=== PATIENT | male | born 1950 | race Hispanic/Latino ===

== ENCOUNTER → 2017-08-25 | Outpatient (CLI) | payer MEDICARE | LOC: RAH 07:18 | PROVIDERS: ATTEND Internal Medicine Gastroenterology | DX: K74.3 Primary biliary cirrhosis (principal); R74.8 Abnormal levels of other serum enzymes; R16.0 Hepatomegaly, not elsewhere classified | CPT/HCPCS: 76700 ==

== ENCOUNTER → 2019-01-25 | Outpatient (CLI) | payer OTHER, MEDICARE | END | disposition home or self-care (01) | LOC: RAH 10:01 | PROVIDERS: ATTEND Internal Medicine Gastroenterology | DX: D73.2 Chronic congestive splenomegaly (principal); K86.2 Cyst of pancreas | CPT/HCPCS: 76700; 93975 ==

== ENCOUNTER 2019-03-04 06:03 | Day surgery (SDC) | payer OTHER, MEDICARE ==
[~2019-03-04] VITALS: Ht 162.6 cm; Wt 69.9 kg
[~2019-03-04 06:03] MED LIST: SODIUM CHLORIDE 0.9% 1000ML 1,000 ML IV ONE
[2019-03-04 06:51] LABS: BASOPHILS % (AUTO) 0.9 % (0.0-5.0); HEMATOCRIT 30.8 % (42-54); LYMPHOCYTES % (AUTO) 33.9 % (21.0-51.0); MEAN CORPUSCULAR HEMOGLOBIN 35.2 pg (27.0-33.0); MEAN CORPUSCULAR HGB CONC 34.4 g/dL (32.0-36.0); MEAN CORPUSCULAR VOLUME 102.2 fL (79-99); MONOCYTES % (AUTO) 8.9 % (3.0-13.0); NEUTROPHILS % (AUTO) 54.3 % (40.0-77.0); NUCLEATED RED BLOOD CELLS 0.1 % (0.0-0.19); PLATELET COUNT (AUTO) 231 K/uL (130-400); RED BLOOD CELL COUNT(AUTO) 3.01 MIL/uL (4.50-6.20); RED CELL DISTRIBUTION WIDTH 16.7 % (11.0-15.5)
[2019-03-04 07:00] LABS: INR 1.16 (0.85-1.15); PROTHROMBIN TIME 12.1 SEC (9.6-11.6)
[2019-03-04 07:11] VITALS: BP 103/57
[2019-03-04] MEDS ORDERED: URSO500T10 PO (07:27)
[2019-03-04] MEDS ORDERED: TAMS-1 PO (07:27)
[2019-03-04] MEDS ORDERED: FINA5TAB41 PO (07:27)
[2019-03-04] MEDS ORDERED: PROPOFOL 10 MG/ML 20ML VIAL IV ONE (09:42)
[2019-03-04 10:00] VITALS: BP 124/85
[2019-03-04 10:05] VITALS: BP 127/85
[2019-03-04 10:09] VITALS: BP 128/82
[2019-03-04 10:14] VITALS: BP 128/79
[2019-03-04 10:20] VITALS: BP 121/77
== END 2019-03-04 10:37 | disposition home or self-care (01) ==
LOC: DAH 06:03 → ENDO 06:03
PROVIDERS: ATTEND Internal Medicine
DX: I85.00 Esophageal varices without bleeding (principal); E03.9 Hypothyroidism, unspecified; K31.89 Other diseases of stomach and duodenum; E78.5 Hyperlipidemia, unspecified; K86.2 Cyst of pancreas; I73.9 Peripheral vascular disease, unspecified; Z79.899 Other long term (current) drug therapy; Z98.890 Other specified postprocedural states; Z82.3 Family history of stroke
CPT/HCPCS: 36415; 43237; 43244; 85025; 85610; J2704; J7030

== ENCOUNTER 2019-04-12 07:59 | Day surgery (SDC) | payer OTHER, MEDICARE ==
[~2019-04-12] VITALS: Ht 177.8 cm; Wt 68.0 kg
[~2019-04-12 07:59] MED LIST changes: +FINA5TAB41 PO; +LACT10SO62 PO; +TAMS-1 PO; +URSO500T10 PO
[2019-04-12 09:51] VITALS: BP 108/60
[2019-04-12] MEDS ORDERED: PANT40TA25 PO (10:00)
[2019-04-12] MEDS ORDERED: SPIR25TA6 PO (10:00)
[2019-04-12] MEDS ORDERED: PROPOFOL 10 MG/ML 20ML VIAL IV ONE ×2 (10:36)
[2019-04-12 10:48] VITALS: BP 121/75
[2019-04-12 10:53] VITALS: BP 126/73
[2019-04-12 10:58] VITALS: BP 130/75
[2019-04-12 11:03] VITALS: BP 123/76
== END 2019-04-12 11:16 | disposition home or self-care (01) ==
LOC: ENDO 07:59 → DAH 07:59 → ENDO 11:16
PROVIDERS: ATTEND Internal Medicine
DX: I85.10 Secondary esophageal varices without bleeding (principal); K74.3 Primary biliary cirrhosis; K74.60 Unspecified cirrhosis of liver; E03.9 Hypothyroidism, unspecified; E78.5 Hyperlipidemia, unspecified; I73.9 Peripheral vascular disease, unspecified; Z98.890 Other specified postprocedural states; Z79.899 Other long term (current) drug therapy; Z83.3 Family history of diabetes mellitus
CPT/HCPCS: 43244; A4215; A4221; A4222; A4223; A4606; A4615; A4663; J2704; J7030

== ENCOUNTER → 2019-05-31 | Outpatient (CLI) | payer OTHER, MEDICARE ==
[~2019-05-31] MED LIST changes: +ALBUMIN (HUMAN) 25% 200 ML IV SCH; +PANT40TA25 PO; -SODIUM CHLORIDE 0.9% 1000ML 1,000 ML IV ONE; +SPIR25TA6 PO
[2019-05-31 09:15] LABS: BASOPHILS % (AUTO) 0.8 % (0.0-5.0); EOSINOPHILS % (AUTO) 1.7 % (0.0-8.0); LYMPHOCYTES % (AUTO) 26.7 % (21.0-51.0); MEAN CORPUSCULAR HEMOGLOBIN 34.6 pg (27.0-33.0); MEAN CORPUSCULAR HGB CONC 34.2 g/dL (32.0-36.0); MONOCYTES % (AUTO) 8.2 % (3.0-13.0); NEUTROPHILS % (AUTO) 62.6 % (40.0-77.0); NUCLEATED RED BLOOD CELLS 0.2 % (0.0-0.19); PLATELET COUNT (AUTO) 185 K/uL (130-400); RED BLOOD CELL COUNT(AUTO) 3.16 MIL/uL (4.50-6.20); RED CELL DISTRIBUTION WIDTH 15.7 % (11.0-15.5); WHITE BLOOD COUNT (AUTO) 4.6 K/uL (4.8-10.8)
[2019-05-31 09:18] LABS: CREATININE 1.1 mg/dL (0.5-1.5)
[2019-05-31 09:23] LABS: ALBUMIN 1.3 g/dL (3.5-5.0); BILIRUBIN,TOTAL 8.3 mg/dL (0.2-1.0); TOTAL PROTEIN, SERUM 7.2 g/dL (6.0-8.3)
[2019-05-31 09:26] LABS: INR 1.26 (0.85-1.15); PROTHROMBIN TIME 13.1 SEC (9.6-11.6)
--- NOTE | 2019-05-31 12:10 | NUR ---
U/S GD PARACENTESIS PROCEDURE PERFORMED BY DR ROMERO. PUNCTURE SITE RIGHT LOWER QUADRANT OF ABDOMEN AND PATIENT TOLERATED PROCEDURE WELL. TOTAL REMOVED 5.5 LITERS OF CLOUDY YELLOW ASCITES FLUID. END OF PROCEDURE AT 1230. CATHETER REMOVED AND DRESSING APPLIED. NO BLEEDING NOTED. ALBUMIN 25% 50 GRAMS GIVEN DURING PROCEDURE PER [facility] ALBUMIN PROTOCOL. DISCHARGE INSTRUCTIONS GIVEN TO PATIENT. PATIENT VERBALIZED UNDERSTANDING. PT DISCHARGED AMBULATORY, STABLE, AAO X3 WITH NO C/O PAIN. SPECIMEN SENT TO LAB.
[2019-05-31 13:45] LABS: ALBUMIN,BODY FLUID < 0.6 g/dL
[2019-05-31 14:04] LABS: APPEARANCE BODY FLUID CLEAR (CLEAR); BODY FLUID RBC 74 /cu. mm.; BODY FLUID WBC 225 /cu. mm.; COLOR,BODY FLUID YELLOW (LT YELLOW); SPECIMENTYPE,BODY FLUID ASCITES; TOTAL VOLUME,BODY FLUID 5500 mL
[2019-05-31 14:17] LABS: BF LYMPHOCYTE 50 %; BF MESOTHELIAL 43 %; BF MONOCYTE 6 %
== END ==
LOC: RAH 08:43
PROVIDERS: ATTEND Internal Medicine Gastroenterology
DX: R18.8 Other ascites (principal); K74.60 Unspecified cirrhosis of liver; E03.9 Hypothyroidism, unspecified; I73.9 Peripheral vascular disease, unspecified; Z79.899 Other long term (current) drug therapy; Z98.890 Other specified postprocedural states; Z83.3 Family history of diabetes mellitus
CPT/HCPCS: 36415; 49083; 80053; 82042; 84157; 85025; 85610; 87071; 87205; 88108; 89051; 96365; A4215; P9046

== ENCOUNTER → 2019-06-22 | Outpatient (CLI) | payer OTHER, MEDICARE ==
[~2019-06-22] MED LIST changes: +ALBUMIN (HUMAN) 25% 200 ML IV ONE; -ALBUMIN (HUMAN) 25% 200 ML IV SCH
[2019-06-22 09:22] LABS: BASOPHILS % (AUTO) 0.7 % (0.0-5.0); EOSINOPHILS % (AUTO) 1.9 % (0.0-8.0); HEMATOCRIT 32.4 % (42-54); LYMPHOCYTES % (AUTO) 22.6 % (21.0-51.0); MEAN CORPUSCULAR HEMOGLOBIN 32.9 pg (27.0-33.0); MONOCYTES % (AUTO) 7.1 % (3.0-13.0); PLATELET COUNT (AUTO) 163 K/uL (130-400); RED BLOOD CELL COUNT(AUTO) 3.34 MIL/uL (4.50-6.20); RED CELL DISTRIBUTION WIDTH 19.4 % (11.0-15.5); WHITE BLOOD COUNT (AUTO) 4.3 K/uL (4.8-10.8)
[2019-06-22 09:34] LABS: INR 1.19 (0.85-1.15); PROTHROMBIN TIME 12.4 SEC (9.6-11.6)
[2019-06-22 09:36] LABS: CREATININE 1.1 mg/dL (0.5-1.5); POTASSIUM 3.6 mmol/L (3.5-5.1)
[2019-06-22 09:41] LABS: ALBUMIN 1.6 g/dL (3.5-5.0); BILIRUBIN,TOTAL 10.5 mg/dL (0.2-1.0); TOTAL PROTEIN, SERUM 7.6 g/dL (6.0-8.3)
--- NOTE | 2019-06-22 10:00 | NUR ---
U/S GD PARACENTESIS PROCEDURE PERFORMED BY DR. ROMERO. PUNCTURE SITE RIGHT LOWER QUADRANT OF ABDOMEN AND PATIENT TOLERATED PROCEDURE WELL. TOTAL REMOVED 9.0 LITERS OF CLOUDY YELLOW FLUID. END OF PROCEDURE AT 1040. CATHETER REMOVED AND DRESSING APPLIED. NO BLEEDING NOTED. ALBUMIN 25% 50 GRAMS GIVEN DURING PROCEDURE [place] [facility] [place]. DISCHARGE INSTRUCTIONS GIVEN TO PATIENT. PATIENT VERBALIZED UNDERSTANDING. PT DISCHARGED VIA W/C, STABLE, AAO X3 WITH NO C/O PAIN. SPECIMEN SENT TO LAB.
[2019-06-22 16:49] LABS: SPECIMENTYPE,BODY FLUID ASCITES
[2019-06-22 16:50] LABS: APPEARANCE BODY FLUID SLIGHTLY CLOUDY (CLEAR); COLOR,BODY FLUID YELLOW (LT YELLOW)
[2019-06-22 16:51] LABS: BODY FLUID RBC 81 /cu. mm.; BODY FLUID WBC 199 /cu. mm.
[2019-06-22 16:54] LABS: BF LYMPHOCYTE 75 %; BF MESOTHELIAL 6 %; BF MONOCYTE 12 %
[2019-06-22 16:56] LABS: TOTAL VOLUME,BODY FLUID 9000 mL
== END ==
LOC: RAH 08:16
PROVIDERS: ATTEND Internal Medicine Gastroenterology
DX: R18.8 Other ascites (principal)
CPT/HCPCS: 36415; 49083; 80053; 85025; 85610; 87071; 87205; 88108; 88305; 89051; 96365; A4215; P9046

== ENCOUNTER 2019-06-28 17:45 | Emergency (ER) | payer OTHER, MEDICARE ==
[~2019-06-28 17:45] MED LIST changes: -ALBUMIN (HUMAN) 25% 200 ML IV ONE
[2019-06-28 18:12] LABS: BASOPHILS % (AUTO) 0.2 % (0.0-5.0); EOSINOPHILS % (AUTO) 0.7 % (0.0-8.0); HEMATOCRIT 33.5 % (42-54); LYMPHOCYTES % (AUTO) 24.3 % (21.0-51.0); MEAN CORPUSCULAR HEMOGLOBIN 33.4 pg (27.0-33.0); MEAN CORPUSCULAR HGB CONC 34.9 g/dL (32.0-36.0); MEAN CORPUSCULAR VOLUME 95.7 fL (79-99); MONOCYTES % (AUTO) 5.7 % (3.0-13.0); NEUTROPHILS % (AUTO) 68.4 % (40.0-77.0); PLATELET COUNT (AUTO) 203 K/uL (130-400); RED CELL DISTRIBUTION WIDTH 19.8 % (11.0-15.5); WHITE BLOOD COUNT (AUTO) 4.5 K/uL (4.8-10.8)
[2019-06-28 18:23] LABS: POTASSIUM 3.6 mmol/L (3.5-5.1)
[2019-06-28 18:24] LABS: INR 1.19 (0.85-1.15); PROTHROMBIN TIME 12.4 SEC (9.6-11.6)
[2019-06-28 18:27] LABS: ALBUMIN 1.8 g/dL (3.5-5.0); BILIRUBIN,TOTAL 13.2 mg/dL (0.2-1.0); TOTAL PROTEIN, SERUM 7.7 g/dL (6.0-8.3)
== END 2019-06-28 18:59 | disposition home or self-care (01) ==
LOC: EDH 17:45
DX: R18.8 Other ascites (principal); K74.60 Unspecified cirrhosis of liver
CPT/HCPCS: 36415; 80053; 82140; 83690; 85025; 85610; 85730

== ENCOUNTER 2019-07-22 08:25 | Day surgery (SDC) | payer OTHER, MEDICARE ==
[~2019-07-22] VITALS: Ht 170.2 cm; Wt 68.5 kg
[~2019-07-22 08:25] MED LIST changes: +CEPH500T PO; +FURO20TA4 PO; +SODIUM CHLORIDE 0.9% 1000ML 1,000 ML IV ONE
[2019-07-22 09:59] VITALS: BP 87/53
[2019-07-22] MEDS ORDERED: SPIR50TA PO (10:19)
[2019-07-22] MEDS ORDERED: PROPOFOL 10 MG/ML 20ML VIAL IV ONE (10:48)
[2019-07-22 10:56] VITALS: BP 90/60
[2019-07-22 11:02] VITALS: BP 90/61
[2019-07-22 11:09] VITALS: BP 90/61
[2019-07-22 11:19] VITALS: BP 98/51
== END 2019-07-22 11:35 | disposition home or self-care (01) ==
LOC: DAH 08:25 → SUH 08:25
PROVIDERS: ATTEND Internal Medicine
DX: I85.00 Esophageal varices without bleeding (principal); K76.6 Portal hypertension; K31.89 Other diseases of stomach and duodenum; K22.8 Other specified diseases of esophagus; E78.5 Hyperlipidemia, unspecified; I73.9 Peripheral vascular disease, unspecified; R18.8 Other ascites; K74.3 Primary biliary cirrhosis; D64.9 Anemia, unspecified; E03.9 Hypothyroidism, unspecified; E66.9 Obesity, unspecified; Z79.899 Other long term (current) drug therapy; Z98.890 Other specified postprocedural states
CPT/HCPCS: 43235; A4215; A4221; A4222; A4223; A4606; A4620; A4663; J2704; J7030